=== PATIENT | female | born 1930 ===

== ENCOUNTER 2018-08-08 09:11 | Outpatient (CLI) | payer OTHER ==
[~2018-08-08] VITALS: Ht 129.5 cm; Wt 54.4 kg
== END 2018-08-08 09:25 | disposition home or self-care (01) ==
LOC: OFIC 805 09:11
DX: J31.0 Chronic rhinitis (principal); H90.3 Sensorineural hearing loss, bilateral; H61.23 Impacted cerumen, bilateral; H91.13 Presbycusis, bilateral; K02.9 Dental caries, unspecified